=== PATIENT | male | born 1980 | race Caucasian/White ===

== ENCOUNTER 2016-07-08 08:13 | Observation (INO) | payer SELFPAY ==
[2016-07-08] VITALS (8 sets, daily range): BP systolic 114–150; BP diastolic 67–88; PULSE 32–78; RESP 15–20; TEMP 97.6–98.3; O2SAT 96–100
[~2016-07-08] VITALS: Ht 180.3 cm; Wt 106.5 kg
[2016-07-08] MEDS ORDERED: DEXAMETHASONE SOD PHOS 20 MG/5 ML VIAL IV PUSH ONE (09:00)
[2016-07-08] MEDS ORDERED: IBUPROFEN 800 MG TAB PO ONE (09:00)
[2016-07-08] MEDS ORDERED: ACETAMINOPHEN/HYDROcodone 325 MG/5 MG TAB PO ONE (09:00)
[2016-07-08] MEDS ORDERED: CLINDAMYCIN INJ 600 MG in SODIUM CHLORIDE 0.9% INJ 100 ML IV ONE (09:00)
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
[2016-07-08 09:15] LABS: AUTOMATED NEUTROPHIL # 4.5 TH/MM3 (1.8-7.7); BASOPHIL % 0.4 % (0.0-2.0); EOSINOPHIL # 0.3 TH/MM3 (0-0.4); EOSINOPHIL % 4.1 % (0.0-4.0); HEMATOCRIT 39.5 % (39.0-51.0); HEMO FLAGS DIFF FINAL; LYMPH % 22.4 % (9.0-44.0); LYMPHOCYTE # 1.5 TH/MM3 (1.0-4.8); MEAN CELL VOLUME 86.4 FL (80.0-100.0); MEAN CORPUSCULAR HEMOGLOBIN 30.4 PG (27.0-34.0); MEAN CORPUSCULAR HGB CONC 35.1 % (32.0-36.0); NEUT % 67.1 % (16.0-70.0); PLATELET COUNT 263 TH/MM3 (150-450); RED BLOOD COUNT 4.57 MIL/MM3 (4.50-5.90); RED CELL DISTRIBUTION WIDTH 12.8 % (11.6-17.2); WHITE BLOOD COUNT 6.6 TH/MM3 (4.0-11.0)
[2016-07-08 09:30] LABS: BICARBONATE 24.7 MEQ/L (21.0-32.0)
[2016-07-08] MEDS ORDERED: IOHEXOL 350 MG/ML 10 ML VIAL (for RAD DIAG) IV ONE (10:09)
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
[2016-07-08] MEDS ORDERED: ONDANSETRON HCL 4 MG/2 ML VIAL IVP PRN (12:00)
[2016-07-08] MEDS ORDERED: SODIUM CHLORIDE 0.9% FLUSH 5 ML FLUSH FLUSH PRN (12:00)
[2016-07-08] MEDS ORDERED: NALOXONE HCL 0.4 MG/ML AMP IV PRN (12:00)
[2016-07-08] MEDS: SODIUM CHLORIDE 0.9% FLUSH 5 ML FLUSH FLUSH SCH ×2 (12:05→20:30)
[2016-07-08] MEDS ORDERED: ACETAMINOPHEN/HYDROcodone 325 MG/5 MG TAB PO PRN (12:30)
[2016-07-08] MEDS: NICOTINE 21 MG/24 HR PATCH TD SCH (13:21)
[2016-07-08] MEDS: ACETAMINOPHEN/HYDROcodone 325 MG/10 MG TAB PO PRN (16:08)
[2016-07-08] MEDS: CLINDAMYCIN INJ 600 MG in SODIUM CHLORIDE 0.9% INJ 100 ML IV SCH ×2 (16:08→20:29)
[2016-07-09 04:00] VITALS: BP 121/81; PULSE 78; RESP 18; TEMP 97.6; O2SAT 98
[2016-07-09] MEDS: CLINDAMYCIN INJ 600 MG in SODIUM CHLORIDE 0.9% INJ 100 ML IV SCH ×2 (04:03→09:00)
[2016-07-09] MEDS: ACETAMINOPHEN/HYDROcodone 325 MG/10 MG TAB PO PRN ×2 (05:20→09:00)
[2016-07-09 07:28] LABS: AUTOMATED NEUTROPHIL # 8.7 TH/MM3 (1.8-7.7); BASOPHIL % 0.1 % (0.0-2.0); EOSINOPHIL % 0.1 % (0.0-4.0); HEMATOCRIT 38.8 % (39.0-51.0); HEMO FLAGS DIFF FINAL; LYMPH % 6.8 % (9.0-44.0); LYMPHOCYTE # 0.7 TH/MM3 (1.0-4.8); MEAN CORPUSCULAR HEMOGLOBIN 30.9 PG (27.0-34.0); MEAN CORPUSCULAR HGB CONC 35.6 % (32.0-36.0); MONO % 5.7 % (0.0-8.0); NEUT % 87.3 % (16.0-70.0); PLATELET COUNT 257 TH/MM3 (150-450); RED BLOOD COUNT 4.47 MIL/MM3 (4.50-5.90); RED CELL DISTRIBUTION WIDTH 12.8 % (11.6-17.2); WHITE BLOOD COUNT 9.9 TH/MM3 (4.0-11.0)
[2016-07-09 07:43] LABS: POTASSIUM 3.7 MEQ/L (3.5-5.1)
[2016-07-09 08:00] VITALS: BP 139/84; PULSE 52; RESP 20; TEMP 97.4; O2SAT 99
[2016-07-09 08:30] VITALS: O2SAT 98
--- NOTE | 2016-07-09 08:36 | HHI.FPPN ---
Subjective Remarks FM Attending Note: Patient seen and examined. S: Chart and all resident physician notes reviewed. In summary this is a 35 year old male who was admitted with an admission diagnosis of Dental Abscess. Patient reports injury to left lower 1st molar followed by recent onset of pain and facial swelling. Imaging suggested an abscess. Good response overnight to IV antibiotic therapy. To have f/u appt with oral surgery. Objective Vitals Vital Signs Date Time Temp Pulse Resp B/P Pulse Ox O2 Delivery O2 Flow Rate FiO2 07/09/16 04:00 97.6 78 18 121/81 98 07/08/16 23:30 96 07/08/16 20:00 97.8 69 17 138/88 97 07/08/16 16:00 97.6 63 20 136/75 98 07/08/16 14:10 97.8 32 18 121/70 97 07/08/16 13:48 72 18 114/67 97 07/08/16 12:34 78 18 124/70 97 Room Air 07/08/16 10:15 18 07/08/16 10:15 18 07/08/16 09:33 78 16 117/74 97 Room Air I/O 07/08/16 07/08/16 07/08/16 07/09/16 07/09/16 07/09/16 07:00 15:00 23:00 07:00 15:00 23:00 Intake Total 1200 ml Balance 1200 ml Intake Oral 1200 ml # Voids 3 2 # Bowel Movements 1 0 Result Diagram: 07/09/16 0646 07/09/16 0646 Imaging Last [address] 07/08/16 0000 Signed Impressions: Service Date/Time: June 09:51 - CONCLUSION: Soft tissue edema overlying the left mandible without evidence of underlying osseous injury. Carla Bernard MD ADDENDUM: This report is amended after discussing with the referring ER physician at the history is suspected abscess not trauma. Review of the images demonstrate a small 2.1 x 1.4 x 2.4 cm fluid collection with a small focus of air adjacent to the left mandible consistent with a small abscess. This is seen immediately adjacent to a left second molar which demonstrates evidence of dental caries. Carla Bernard MD Objective Remarks O. CONSTITUTIONAL/GEN: normally nourished, in NAD. EYES: conjunctiva normal, PERRLA, EOMI. ENT: left lower 1st molar shows fracture at lateral cusp; appears to have caries present. LUNGS: clear A-P, respiratory effort is normal. CARDIOVASCULAR: RR without murmur or gallop. No significant edema. NEURO: No focal deficits. MUSC: back is normal in appearance. Extremities are normal in appearance. PSYCH/MENTAL STATUS: Alert and oriented x 3. A/P Assessment and Plan 35y male with tooth pain xmonths presents with tooth pain and swelling L cheek x 2 days, hospitalized for observation 07/08/16 for dental abscess 2x 1.4 x 2 cm visualized on maxillofacial CT. Problem List: (1) Dental abscess Status: Acute Plan: Pt with history of poor dentition presents with toothache and L jaw swelling, acutely worsening x2 days after trauma to jaw that chipped tooth. CT maxillofacial shows 2 x 1.4 x 2 cm dental abscess. Received ibuprofen, dexamethasone, clindamycin x1 (9am) in ED Maxillofacial surgery consulted, likely planned outpatient removal of tooth 07/09 -Admit to Inpatient -ED consulted maxillofacial surgery, Dr. Gregorio -Recommend additional doses IV antibiotics prior to anticipated surgery Tuesday in office -Continue Clindamycin 600mg IV q6h CRISTIAN (07/08- ) -[place] 10/325 1 tab q6h PRN pain 6-10 -[place] 5/325 1 tab q6h PRN breakthrough pain -Case management consulted -No PCP, please assist with finding primary care physician to ensure follow up care 07/09/16 To be discharge to continue on oral antibiotic therapy. Medication for pain. To f/u with oral surgery for definitive treatment. (2) Tobacco abuse Status: Chronic Plan: 1.5 PPD smoker * 1 year. Nicotine gum contraindicated due to dental abscess -Smoking cessation counseling provided -Nicotine patch daily, remove before bed to prevent nightmares (3) Fluids, Electrolytes, Nutrition, Prophylaxis Status: Acute Plan: Fluids: Per PO Electrolytes: wnl on arrival, monitor and replete PRN Nutrition: Liquid diet, NPO after midnight 07/09/16 DVT ppx: SCD GI ppx: Not indicated Vadim Colin MD Jul 09, 2016 08:36
[2016-07-09] MEDS ORDERED: HYDR-3583 PO (08:38)
[2016-07-09] MEDS ORDERED: CLIN150 PO (08:38)
--- NOTE | 2016-07-09 08:40 | HHI.DCPOC ---
Discharge Care Plan Diagnosis: (1) Dental abscess Goals to Promote Your Health * To prevent worsening of your condition and complications * To maintain your health at the optimal level Directions to Meet Your Goals Take your medications as prescribed Follow your dietary instruction Follow activity as directed Keep your appointments as scheduled Take your immunizations and boosters as scheduled If your symptoms worsen call your PCP, if no PCP go to Urgent Care Center or Emergency Room Smoking is Dangerous to Your Health. Avoid second hand smoke Call the 24-hour hour crisis hotline for domestic abuse at Mirian Coelho MD R3 Jul 09, 2016 08:40
[2016-07-09] MEDS: NICOTINE 21 MG/24 HR PATCH TD SCH (09:00)
[2016-07-09] MEDS: SODIUM CHLORIDE 0.9% FLUSH 5 ML FLUSH FLUSH SCH (09:02)
--- NOTE | 2016-07-09 15:35 | HHI.FPPN ---
Subjective Remarks Overnight, no acute events. AFVSS. He has been NPO since midnight. Still moderate pain in tooth/jaw, though swelling of L cheek improved. Denies f /c, n/v, SOB/CP, leg pain. (Marcela Damon MD R1) Objective Vitals Vital Signs Date Time Temp Pulse Resp B/P Pulse Ox O2 Delivery O2 Flow Rate FiO2 07/09/16 08:30 98 21 07/09/16 08:00 97.4 52 20 139/84 99 07/09/16 04:00 97.6 78 18 121/81 98 07/08/16 23:30 96 07/08/16 20:00 97.8 69 17 138/88 97 07/08/16 16:00 97.6 63 20 136/75 98 I/O 07/08/16 07/08/16 07/08/16 07/09/16 07/09/16 07/09/16 07:00 15:00 23:00 07:00 15:00 23:00 Intake Total 1200 ml Balance 1200 ml Intake Oral 1200 ml # Voids 3 2 # Bowel Movements 1 0 (Marcela Damon MD R1) Result Diagram: 07/09/16 0646 07/09/16 0646 Imaging Last Impressions Maxillofacial CT 07/08/16 0000 Signed Impressions: Service Date/Time: June 09:51 - CONCLUSION: Soft tissue edema overlying the left mandible without evidence of underlying osseous injury. Carla Bernard MD ADDENDUM: This report is amended after discussing with the referring ER physician at the history is suspected abscess not trauma. Review of the images demonstrate a small 2.1 x 1.4 x 2.4 cm fluid collection with a small focus of air adjacent to the left mandible consistent with a small abscess. This is seen immediately adjacent to a left second molar which demonstrates evidence of dental caries. Carla Bernard MD Objective Remarks CONST: Adult male in mild distress secondary to jaw pain. DERM: Warm and dry HEENT: PERRL. EOMI. MMM. Poor dentition. Multiple chipped and jagged upper frontal teeth. Bottom teeth frontal appear intact, but uneven.Molar on bottom L side is chipped and missing half chewing surface. Gums are not bleeding. Skin of L cheek is very swollen/approx size of a golf ball, hard, non- fluctuant. CV: RRR. No murmurs or gallops. Radial pulse 2+. RESP: Lungs CTAB. No wheezing. GI: Abd non-tender, non-distended. +BS MSK: Moves all four limbs against gravity. NEURO: Motor and sensory function grossly intact. PSYCH: Appropriate affect. Moderate insight. (Marcela Damon MD R1) Urinary Catheter: No (Marcela Damon MD R1) Vascular Central Line Catheter: No (Marcela Damon MD R1) A/P Assessment and Plan 35y male with tooth pain x months presents with severe tooth pain and swelling L cheek x 2 days. Placed in observation 07/08/16 for treatment of dental abscess Discharge Planning Today, to follow up with oromaxillary surgery, Dr. Teresa, to evaluate for tooth removal SDW: Dr. Colin, Dr Coelho, Dr Cardenas, Dr Gaffney (Marcela Damon MD R1) Attending Attestation Patient seen and examined. Case reviewed and discussed with the resident team. Agree with plan of care as discussed with me and documented in the resident note. (Vadim Colin MD) Problem List: (1) Dental abscess Status: Acute Plan: Pt with history of poor dentition presents with toothache and L jaw swelling, acutely worsening x2 days after trauma to jaw that chipped tooth. CT maxillofacial shows 2 x 1.4 x 2 cm dental abscess. Maxillofacial surgery notified, recommended outpatient removal of tooth 07/09/16 if patient stable s/p initiation IV antibiotics * Clindamycin 600mg IV q6h CRISTIAN (07/08-07/09), discharge with PO Clinda * [place] 10/325 1 tab q6h PRN pain 6-10, discharge with #20 for pain control * Case management consulted: no PCP, please assist (2) Tobacco abuse Status: Chronic Plan: 1.5 PPD smoker * 1 year. Nicotine gum contraindicated due to dental abscess * Smoking cessation counseling provided, nicotine patch daily, remove before bed to prevent nightmares (3) Fluids, Electrolytes, Nutrition, Prophylaxis Status: Acute Plan: Fluids: Per PO Electrolytes: wnl on arrival, monitor and replete PRN Nutrition: NPO DVT ppx: SCD GI ppx: Not indicated OOB ad arcelia (Marcela Damon MD R1) Marcela Damon MD R1 Jul 09, 2016 15:34 Vadim Colin MD Jul 11, 2016 13:01
[2016-11-29] MEDS ORDERED: PERC5TAB12 PO (09:58)
== END 2016-07-09 10:22 | disposition home or self-care (01) ==
LOC: NEPC 08:13 → NEDA 11:16 → HOCB 13:58
PROVIDERS: ADMIT Family Medicine; ATTEND Family Medicine
DX: K04.7 Periapical abscess without sinus (principal); K02.9 Dental caries, unspecified; F17.200 Nicotine dependence, unspecified, uncomplicated
CPT/HCPCS: 70487; 80048; 85025; 96365; 96375; 99284; G0378; J1100; J2405; Q9967